=== PATIENT | female | born 1995 | race Caucasian/White ===

== ENCOUNTER 2024-08-10 15:56 | Inpatient (IN) ==
[2024-08-10 16:58] LABS: Basophils # (auto) 0.03 K/uL (0.00-0.20); Basophils % (auto) 0.3 %; Eosinophils # (auto) 0.06 K/uL (0.00-0.50); Eosinophils % (auto) 0.7 %; Hematocrit (blood only) 37.2 % (37.0-47.0); Immature Granulocytes # (auto) 0.05 K/uL (0.01-0.20); Immature Granulocytes % (auto) 0.5 %; Lymphocytes # (auto) 1.76 K/uL (1.20-3.40); Lymphocytes % (auto) 19.2 %; Mean Corpuscular Hemoglobin 28.2 pg (25.0-34.0); Mean Corpuscular Hgb Conc 32.3 g/dL (32.0-36.0); Mean Corpuscular Volume 87.5 fL (80.0-100.0); Mean Platelet Volume 10.7 fL (9.4-12.4); Monocytes # (auto) 0.57 K/uL (0.11-0.59); Monocytes % (auto) 6.2 %; Neutrophils # (auto) 6.71 K/uL (1.40-6.50); Neutrophils % (auto) 73.1 %; Platelet Count 340 K/uL (130-400); RDW Standard Deviation 43.9 fL (36.4-46.3); Red Blood Count 4.25 M/uL (4.20-5.40); White Blood Count 9.18 K/ul (4.8-10.8)
[2024-08-10 17:15] LABS: Albumin Globulin Ratio 1.1 (0.9-2); Albumin Level 3.4 gm/dl (3.4-5.0); BUN Creatinine Ratio 9.1 (10-20); Bilirubin,Total 0.3 mg/dl (0.2-1.0); Calcium 8.9 mg/dl (8.6-10.3); Creatinine Clr Calc Pharmacy 161.1 ml/min; Globulin 3.2 gm/dl (2.5-4.0); Total Protein 6.6 gm/dl (6.0-8.3)
[2024-08-10 17:32] LABS: Protein Creatinine Ratio Urine 0.2 (0-0.2)
[2024-08-10] MEDS: NIFEdipine 10 MG CAP PO STA ×2 (18:10→19:55)
[2024-08-10] MEDS ORDERED: LIDOCAINE 1% LOCAL 20 ML VIAL INFIL PRN (18:16)
[2024-08-10] MEDS ORDERED: OXYTOCIN 30 UNITS/NSS 30 UNITS/500 ML BAG IV PRN ×2 (18:16)
[2024-08-10] MEDS ORDERED: ACETAMINOPHEN 325 MG TAB PO PRN (18:16)
--- NOTE | 2024-08-10 18:42 | History & Physical Report ---
Date of Service August 10, 2024 Assessment & Plan (1) Gestational hypertension: Plan: Reviewed labs with patient - normal findings, 0.2 urine protein/creat ratio. Given blood pressures in severe range for 4+ hours, would recommend move towards delivery. She was in agreement. After ultrasound showing breech presentation, she is aware of recommendation for delivery by section due to breech presentation. Will start magnesium, give PO nifedipine 10mg immediate-release for BP. Reviewed consent in detail with patient - last ate 3pm, will plan for at approx 9pm per my discussion with anesthesiologist. History of Present Illness Chief Complaint: elevated BP, headache Primary Care Provider: Denae Ford 29yo @ 36 11/16, sent from office with elevated BPs. Had had headache over the past few days, has also had tunnel vision-like visual changes. Swollen legs. Obesity (BMI between 35-39 @ beginning of ) *Growth US @ 32 wks *Weekly NSTs @ 36wks Effexor for anxiety GBS + urine-treat in labor Allergies Allergy/AdvReac Type Severity Reaction Status Date / Time Sulfa (Sulfonamide Allergy Unknown Hives Verified 08/10/24 16:45 Antibiotics) Home Medications Medication Instructions Recorded Confirmed Type venlafaxine 75 mg tablet 75 mg PO HS 01/20/24 08/10/24 History Patient History Medical History (Updated 08/10/24 @ 18:47 by Jaqueline Mak DO) Anxiety on effexor daily History of chicken pox Migraine without aura IBS (irritable bowel syndrome) Intrinsic asthma HX OF WHILE GROWING UP - NO CURRENT PROBLEM WITH Surgical History History of reduction surgery of left breast History of endoscopy History of colonoscopy History of oral surgery History of wisdom tooth extraction History of tonsillectomy Family History Denies family history of Ovarian cancer Breast cancer Colorectal cancer Uterine cancer Social History (Updated 08/10/24 @ 16:45 by Moon Jasso, ROSANA) Smoking Status: Never smoker Do You Dip or Chew Tobacco: No; Hx Alcohol Use: No Hx Substance Use: No Preferred Language: Kyrgyz Communication Ability: Effective Adolescent Medicine Specialist Required: No Beliefs That Will Affect Care: None marital status: Single marital status details: Braulio Vazquez (31) [phone] Current Living Situation: Family and Significant Other Current Living Situation Comment: FOB, adopted daughter (11), 1 cat, 2 dogs- FOB changes litter current occupational status: employed current occupation: [employer] Feels Safe at Home: Yes Safety Concerns: Feels Safe At This Time Sunscreen Use: No Assistive Devices: Glasses Review of Systems All systems reviewed & are unremarkable except as noted in HPI & below Physical Exam Physical Exam: FHT Cat 1 [place] rare ctx Limited bedside ultrasound - breech presentation, anterior placenta Constitutional: WD/WN, vitals as above Respiratory: normal respiratory effort, lungs clear to auscultation no respiratory distress Cardiovascular: Rate/Rhythm: regular rate and regular rhythm Gastrointestinal (Abdomen): Inspection/Auscultation: abdomen normal to inspection Percussion/Palpation: abdomen soft; abdomen nontender Gravid. No s/s chorio or abruption. Skin: no rashes, warm and dry Psychiatric: A+Ox3, euthymic affect Results & Data Vital Signs (Past 12 Hours) Vital Signs Temp Pulse Resp BP 08/10/24 17:37 123 H 175/95 H 08/10/24 17:18 117 H 159/107 H 08/10/24 16:58 113 H 172/110 H 08/10/24 16:41 37.2 C 18 08/10/24 16:38 121 H 185/124 H 08/10/24 16:17 97 H 169/87 H Coding Level of Care Code None Diagnoses Gestational hypertension O13.9
[2024-08-10] MEDS: PENICILLIN GK 6 MU in DEXTROSE 5% 250 ML IV ONE (19:17)
[2024-08-10] MEDS: ACETAMINOPHEN 500 MG TAB PO ONE (20:18)
[2024-08-10] MEDS: LACTATED RINGER'S 1,000 ML IV SCH ×2 (20:27→22:49)
[2024-08-10] MEDS: MAG SULFATE 4GM BOLUS FROM BAG IV ONE (20:30)
[2024-08-10] MEDS: MAGNESIUM SULFATE / WTR 40 GM/1,000 ML BAG IV SCH (20:30)
[2024-08-10] MEDS: ceFAZolin 3000MG 3,000 MG/72.5 ML BAG IV STA (20:30)
[2024-08-10] MEDS: CITRIC ACID/SODIUM CITRATE 15 ML UDC PO STA (20:32)
--- NOTE | 2024-08-10 21:04 | Anesthesiology Consultation ---
Date of Service August 10, 2024 Assessment & Plan Chart Review Chart Review: Acceptable Risk for Surgery Consults Requested none History Surgery Operation Date: 08/10/24 21:00 Proposed Procedures p Section in LD - Jaqueline Mak DO Height/Weight Height: 5 ft 6 in Weight: 112.037 kg Allergies Allergy/AdvReac Type Severity Reaction Status Date / Time Sulfa (Sulfonamide Allergy Unknown Hives Verified 08/10/24 16:45 Antibiotics) Medications Home Medications Medication Instructions Recorded Confirmed Last Taken venlafaxine 75 mg tablet 75 mg PO HS 01/20/24 08/10/24 08/09/24 Active Medications Generic Name Dose Route Start Last Admin Trade Name Freq PRN Reason Stop Dose Admin Magnesium Sulfate 40 gm in 1,000 mls @ 50 mls/hr 08/10/24 18:30 08/10/24 20:30 Magnesium Sulfate / Wtr IV 09/09/24 18:29 50 mls/hr .Q20H IZABELA Administration Lactated Ringer's 1,000 mls @ 50 mls/hr 08/10/24 18:30 08/10/24 20:27 Lr IV 08/11/24 18:29 50 mls/hr .Q20H IZABELA Administration NPO Date Last Intake of Fluids: 08/10/24 Time Last Intake of Fluids: 15:00 Date Last Intake of Solids: 08/10/24 Time Last Intake of Solids: 15:00 Past Medical History Medical History (Updated 08/10/24 @ 18:47 by Jaqueline Mak DO) Anxiety on effexor daily History of chicken pox Migraine without aura IBS (irritable bowel syndrome) Intrinsic asthma HX OF WHILE GROWING UP - NO CURRENT PROBLEM WITH Past Family History Family History Denies family history of Ovarian cancer Breast cancer Colorectal cancer Uterine cancer Past Surgical History Surgical History History of reduction surgery of left breast History of endoscopy History of colonoscopy History of oral surgery History of wisdom tooth extraction History of tonsillectomy Social History Smoking Status: Never smoker Do You Dip or Chew Tobacco: No Hx Alcohol Use: No Hx Substance Use: No substance use type: does not use Physical Exam Vital Signs Last Vital Signs Temp 37.5 C 08/10/24 19:27 Pulse 126 H 08/10/24 20:17 Resp 16 08/10/24 19:27 BP 144/101 H 08/10/24 20:17 Testing Laboratory Results 08/10/24 16:40 08/10/24 16:40
[2024-08-10] MEDS ORDERED: MoRPHine SULFATE PF 1 MG/ML 10 ML AMP/VIAL ONE (21:08)
[2024-08-10] MEDS ORDERED: PENICILLIN GK 3 MU in DEXTROSE 5% 100 ML IV PRN (21:16)
[2024-08-10] MEDS ORDERED: NALOXONE HCL 1 MG in SODIUM CHLORIDE 0.9% 1,000 ML IV PRN (21:56)
[2024-08-10] MEDS ORDERED: MEPERIDINE HCL 25 MG/ML CARP/VIAL IV PRN (21:56)
[2024-08-10] MEDS ORDERED: ePHEDrine sulfate 50 MG/ML AMP IV PRN (21:56)
[2024-08-10] MEDS ORDERED: PROMETHAZINE 6.25 MG/50.25 ML BAG IV PRN (21:56)
[2024-08-10] MEDS ORDERED: oxyCODONE HCL IR 5 MG TAB (IMMEDIATE RELEASE) PO PRN (21:56)
[2024-08-10] MEDS ORDERED: ONDANSETRON INJ 2 MG/ML 2 ML VIAL IV PRN (21:56)
[2024-08-10] MEDS ORDERED: HYDROmorphone INJ 0.5 MG/0.5 ML SYR IV PRN (21:56)
[2024-08-10] MEDS ORDERED: NALOXONE HCL 0.08 MG in SYRINGE 1.8 ML IV PRN (21:56)
[2024-08-10] MEDS ORDERED: ACETAMINOPHEN 1,000 MG/100 ML VIAL IV PRN (21:56)
[2024-08-10] MEDS ORDERED: diphenhydrAMINE 50 MG/ML VIAL IV PRN (21:56)
[2024-08-10] MEDS ORDERED: NALBUPHINE HCL INJ 10 MG/ML AMP IV PRN (21:56)
[2024-08-10] MEDS ORDERED: MoRPHine SULFATE 2 MG/ML CARP IV PRN (21:56)
[2024-08-10] MEDS ORDERED: NALOXONE HCL 0.4 MG/1 ML VIAL/CARP IV PRN (21:56)
[2024-08-10] MEDS ORDERED: KETOROLAC 30 MG/ML VIAL IV PRN (21:56)
[2024-08-10] MEDS ORDERED: METOCLOPRAMIDE HCL 10 MG in SODIUM CHLORIDE 0.9% 50 ML IV PRN (21:56)
[2024-08-10] MEDS ORDERED: NO NARCOTICS OR SEDATIVES SCH (22:00)
[2024-08-10] MEDS ORDERED: DC INTRASPINAL MORPHINE SCH (22:00)
[2024-08-10] MEDS ORDERED: PHENYLEPHRINE 100MCG/ML 10ML SYR IV ONE (22:17)
[2024-08-10] MEDS ORDERED: PHENYLEPHRINE 100MCG/ML 5ML SYR ONE (22:18)
--- NOTE | 2024-08-10 22:28 | Operative Report ---
Post Operative Report Pre & Post Diagnosis Operation Date: 08/10/24 21:00 Pre-Op Diagnosis: 1. Gentational hypertension with severe features 2. Breech Presentation Post-Op Diagnosis: 1. same as preop I identified the patient and participated in the time-out.: Yes Procedure Operation Date: 08/10/24 21:00 Actual Procedures p Primary Low Transverse Section in - Jaqueline Mak DO Surgeon Jaqueline Mak DO Tire Building Supervisor Karen Curtis RN Quantitative Blood Loss (QBL) 699 Findings Consistent with Post-Op Diagnosis Viable female , Apgars 7/8. Weight pending, please see nursery records. Specimens placenta, cord blood, cord gas Drains powell clear yellow Anesthesia Type Spinal Complications none Disposition Accompanied Patient To Recovery: Yes Disposition: L&D Indications 29yo @ 36 2/7, gestational hypertension - severe, breech presentation, obesity, anxiety, GBS+ Description of Procedure The patient was seen in her labor and delivery room, risks benefits and alternatives to surgery were reviewed. Informed consent obtained. Questions were answered. She was taken to the operating room, spinal anesthesia was administered. She was then prepared and draped in the usual sterile fashion in the supine position with a leftward tilt. Timeout was confirmed. A Pfannenstiel skin incision was made with a scalpel, and carried through to the underlying layer of fascia. Fascia was nicked at midline, and this incision was extended bilaterally. The superior aspect of the fascial incision was grasped with Whitney clamps x2, elevated off the underlying rectus abdominis muscles, and dissected sharply and bluntly. In similar fashion, the inferior aspect of the fascial incision was dissected. The rectus abdominis muscles were , and the peritoneum was entered bluntly digitally. This was extended bilaterally. The bladder flap was taken down carefully using Metzenbaum scissors. Using a new scalpel, a low transverse uterine incision was created. Clear amniotic fluid noted. The was delivered from a breech presentation. The buttocks delivered, followed by legs and torso, then arms swept medially and head delivered. The cord was doubly clamped and cut, and the was handed off to the waiting shared services representative. A segment was retained for cord gases. Cord blood was obtained. The placenta was delivered spontaneously intact. The uterus was exteriorized, and cleared of all clots and debris. The hysterotomy incision was reapproximated using 0 Vicryl in a running locked stitch. A second layer of the same suture was used to imbricate the incision. Posterior uterus was evaluated and normal. The uterus was returned to the abdomen, and gutters were cleared of clots and debris. Excellent hemostasis was observed. The fascial incision was reapproximated using 0 Vicryl in a running stitch. The subcutaneous tissue was irrigated, and reapproximated using 2-0 plain gut in a running stitch. The skin was reapproximated using 4-0 Vicryl in a running subcuticular stitch. Steri-Strips and a bandage were applied. The patient tolerated the procedure well, and will be taken to the recovery area in stable and good condition. I attest to the content of the Intraoperative Record and any orders documented therein. Any exceptions are noted below. OB Procedure Charges 13516
[2024-08-10] MEDS ORDERED: BENZOCAINE 20% SPRY 85 APPLN/85 GM CAN EXT PRN (22:36)
[2024-08-10] MEDS ORDERED: CALCIUM CARBONATE 500 MG CHEWABLE TAB PO PRN (22:36)
[2024-08-10] MEDS ORDERED: MAGNESIUM HYDROXIDE SUSP 30 ML UDC PO PRN (22:36)
[2024-08-10] MEDS ORDERED: HYDROCORTISONE ACETATE 25 MG SUPP PR PRN (22:36)
[2024-08-10 22:37] LABS: Base Excess Cord Arterial Bld -1.6 mEq/L (-9-1.8); Base Excess Cord Venous Blood -2.4 mEq/L (-7.7-1.9); CO2 Cord Arterial Blood 52 mmHg (39.1-73.5); Cord Venous Blood HCO3 23 mmol/L (18.4-26.8); Cord Venous Blood PCO2 42 mmHg (30.4-57.2); Cord Venous Blood PO2 25 mmHg (14.1-43.3); Cord Venous Blood pH 7.35 (7.20-7.44); HCO3 Cord Arterial Blood 26 mmol/L (19.7-28.5); O2 Saturation Cord Venous Bld < 60.0 % (<68); Oxygen Sat Cord Arterial Blood < 60.0 % (<60); PO2 Cord Arterial Blood < 20 mmHg (4.1-31.7)
[2024-08-10] MEDS: OXYTOCIN 30 UNITS/LR 1,003 ML IV SCH (22:47)
[2024-08-10] MEDS: VENLAFAXINE HCL 37.5 MG TAB PO SCH (22:49)
--- NOTE | 2024-08-10 22:57 | Communication Note ---
Date of Service: August 10, 2024 Routine WASTE of unused narcotic at [facility] failed. Morphine(PF) 9.8mg returned personally to pharmacy where it was wasted by pharmacist.
[2024-08-11 00:51] LABS: Hematocrit (blood only) 35.3 % (37.0-47.0); Hemoglobin 11.5 g/dl (12.0-16.0); Mean Corpuscular Hemoglobin 28.5 pg (25.0-34.0); Mean Corpuscular Hgb Conc 32.6 g/dL (32.0-36.0); Mean Corpuscular Volume 87.4 fL (80.0-100.0); Mean Platelet Volume 10.9 fL (9.4-12.4); Platelet Count 335 K/uL (130-400); RDW Coefficient of Variation 14.1 % (11.5-14.5); RDW Standard Deviation 44.5 fL (36.4-46.3); Red Blood Count 4.04 M/uL (4.20-5.40); White Blood Count 17.21 K/ul (4.8-10.8)
[2024-08-11 01:04] LABS: Albumin Level 3.1 gm/dl (3.4-5.0); BUN Creatinine Ratio 8.8 (10-20); Bilirubin,Total 0.2 mg/dl (0.2-1.0); Calcium 8.2 mg/dl (8.6-10.3); Creatinine Clr Calc Pharmacy 186.5 ml/min; Potassium 3.7 mmol/L (3.5-5.1); Total Protein 6.1 gm/dl (6.0-8.3)
[2024-08-11] MEDS: KETOROLAC 30 MG/ML VIAL IV SCH (01:21)
[2024-08-11] MEDS: DIPHTHER/TETAN/PERTUS Vaccine (Tdap, Adol/Adult) 0.5mL IM ONE (01:26)
[2024-08-11] MEDS: ACETAMINOPHEN 325 MG TAB PO SCH (02:33)
[2024-08-11] MEDS ORDERED: CITRIC ACID/SODIUM CITRATE 15 ML UDC PO SCH (06:00)
[2024-08-11] MEDS ORDERED: ceFAZolin 3000MG 3,000 MG/72.5 ML BAG IV SCH (06:00)
--- NOTE | 2024-08-11 06:03 | Anesthesiology Progress Note ---
Date of Service August 11, 2024 Anesthesia Post Procedure Vital Signs Vital Signs: Temp Pulse Resp BP Pulse Ox O2 Del Method 08/11/24 05:56 95 H 98 08/11/24 05:51 96 H 97 08/11/24 05:46 99 H 97 08/11/24 05:41 94 H 97 08/11/24 05:36 94 H 97 08/11/24 05:31 92 H 97 08/11/24 05:26 103 H 98 08/11/24 05:21 89 97 08/11/24 05:16 88 97 08/11/24 05:11 97 H 97 08/11/24 05:06 105 H 96 08/11/24 05:01 99 H 97 08/11/24 04:56 99 H 97 08/11/24 04:51 107 H 97 08/11/24 04:46 99 H 97 08/11/24 04:41 100 H 96 08/11/24 04:36 96 H 141/84 H 99 08/11/24 04:31 97 H 97 08/11/24 04:30 18 08/11/24 04:30 36.5 C 14 08/11/24 04:26 104 H 99 08/11/24 04:21 98 H 97 08/11/24 04:16 99 H 98 08/11/24 04:11 107 H 98 08/11/24 04:06 99 H 98 08/11/24 04:01 101 H 98 08/11/24 03:56 99 H 98 08/11/24 03:51 95 H 97 08/11/24 03:46 101 H 97 08/11/24 03:41 103 H 98 08/11/24 03:36 94 H 97 08/11/24 03:31 102 H 97 08/11/24 03:30 16 08/11/24 03:26 96 H 96 08/11/24 03:21 100 H 97 08/11/24 03:16 96 H 97 08/11/24 03:11 97 H 97 08/11/24 03:06 97 H 97 08/11/24 03:01 96 H 98 08/11/24 02:56 96 H 97 08/11/24 02:51 99 H 97 08/11/24 02:46 97 H 97 08/11/24 02:41 94 H 97 08/11/24 02:36 98 08/11/24 02:36 109 H 08/11/24 02:36 99 H 145/83 H 08/11/24 02:31 101 H 97 08/11/24 02:30 36.5 C 18 99 Room Air 08/11/24 02:26 97 H 96 08/11/24 02:21 101 H 96 08/11/24 02:16 100 H 97 08/11/24 02:11 100 H 97 08/11/24 02:06 96 H 97 08/11/24 02:01 101 H 97 08/11/24 01:56 97 H 98 08/11/24 01:51 108 H 98 08/11/24 01:46 96 H 98 08/11/24 01:41 113 H 97 08/11/24 01:36 108 H 98 08/11/24 01:31 112 H 97 08/11/24 01:26 104 H 98 08/11/24 01:21 102 H 98 08/11/24 01:16 105 H 98 08/11/24 01:11 99 H 99 08/11/24 01:06 103 H 98 08/11/24 01:01 105 H 98 08/11/24 00:56 107 H 98 08/11/24 00:51 109 H 98 08/11/24 00:46 103 H 98 08/11/24 00:41 108 H 98 08/11/24 00:36 101 H 100 08/11/24 00:31 107 H 159/98 H 100 08/11/24 00:30 36.8 C 16 99 Room Air 08/11/24 00:26 102 H 100 08/11/24 00:21 106 H 100 08/11/24 00:16 107 H 100 08/11/24 00:11 106 H 126/77 100 08/11/24 00:06 101 H 100 08/11/24 00:01 104 H 100 08/11/24 00:00 16 98 Room Air 08/10/24 23:56 106 H 100 08/10/24 23:51 96 H 137/96 100 08/10/24 23:46 106 H 100 08/10/24 23:41 103 H 100 08/10/24 23:36 102 H 100 08/10/24 23:32 100 H 168/81 H 08/10/24 23:31 106 H 100 08/10/24 23:30 16 08/10/24 23:26 102 H 100 08/10/24 23:21 95 H 100 08/10/24 23:20 16 08/10/24 23:20 36.7 C 16 08/10/24 23:16 94 H 100 08/10/24 23:11 101 H 148/86 H 100 08/10/24 23:10 16 100 Room Air 08/10/24 23:06 102 H 99 08/10/24 23:01 102 H 99 08/10/24 23:00 14 99 Room Air 08/10/24 22:56 105 H 100 08/10/24 22:51 102 H 100 08/10/24 22:50 16 99 Room Air 08/10/24 22:46 101 H 100 08/10/24 22:41 98 H 100 08/10/24 22:40 16 100 Room Air 08/10/24 22:36 106 H 100 08/10/24 22:31 110 H 99 08/10/24 22:30 36.7 C 16 100 Room Air 08/10/24 22:26 100 08/10/24 22:26 110 H 08/10/24 22:26 106 H 145/79 H 08/10/24 21:03 142 H 193/107 H 08/10/24 20:17 126 H 144/101 H 08/10/24 19:27 37.5 C 16 08/10/24 19:24 108 H 170/100 H 08/10/24 17:37 123 H 175/95 H 08/10/24 17:18 117 H 159/107 H 08/10/24 16:58 113 H 172/110 H 08/10/24 16:41 37.2 C 18 08/10/24 16:38 121 H 185/124 H 08/10/24 16:17 97 H 169/87 H Transfer of Care Handoff Completed per policy Notes Mental Status: alert / awake / arousable and participated in evaluation Nausea / Vomiting: adequately controlled Pain: adequately controlled Airway Patency, RR, SpO2: stable & adequate BP & HR: stable & adequate Hydration State: stable & adequate Neuraxial Anesthesia: was administered and sensory block is resolving Anesthetic Complications: no major complications apparent and Pt Satisfied with anesthetic care
[2024-08-11 06:27] LABS: Hemoglobin 9.7 g/dl (12.0-16.0); Mean Corpuscular Hgb Conc 32.3 g/dL (32.0-36.0); Mean Corpuscular Volume 86.7 fL (80.0-100.0); Mean Platelet Volume 10.5 fL (9.4-12.4); Platelet Count 254 K/uL (130-400); RDW Coefficient of Variation 14.2 % (11.5-14.5); RDW Standard Deviation 43.4 fL (36.4-46.3); Red Blood Count 3.46 M/uL (4.20-5.40); White Blood Count 12.49 K/ul (4.8-10.8)
[2024-08-11 06:52] LABS: Albumin Globulin Ratio 1.1 (0.9-2); Albumin Level 2.7 gm/dl (3.4-5.0); BUN Creatinine Ratio 10.2 (10-20); Bilirubin,Total 0.3 mg/dl (0.2-1.0); Calcium 7.3 mg/dl (8.6-10.3); Creatinine Clr Calc Pharmacy 216.9 ml/min; Globulin 2.4 gm/dl (2.5-4.0); Magnesium Therapeutic L&D Only 4.7 mg/dL (4.0-8.0); Potassium 3.7 mmol/L (3.5-5.1); Total Protein 5.1 gm/dl (6.0-8.3)
--- NOTE | 2024-08-11 07:52 | Obstetrical Progress Note ---
Date of Service August 11, 2024 Assessment & Plan (1) Gestational hypertension: POD#1 doing well. Magnesium continues. Labs normal, reviewed with patient. Incision CDI. Abdomen soft. Swelling in legs has improved - now 1+ edema, ECDs in place. BPs have improved since delivery, has not required any additional meds to control BP since delivery. Plan: continue mag 24h, once mag is off can remove powell, ambulate, increase diet. Subjective Ambulation: ambulating normally Voiding: no voiding problems and powell catheter in place Diet Tolerance:: regular diet Lochia:: Moderate Review of Systems All systems reviewed & are unremarkable except as noted in HPI & below Physical Exam Constitutional WD/WN, vitals as above no acute distress Respiratory normal respiratory effort Cardiovascular Rate/Rhythm: regular rate and regular rhythm Gastrointestinal (Abdomen) Inspection/Auscultation: abdomen normal to inspection; abdomen not distended Percussion/Palpation: abdomen soft Genitourinary OB Exam Abdomen: + fundal height Fundus: + firm; not tender Results & Data Vital Signs (Past 12 Hours) Vital Signs Temp Pulse Resp BP Pulse Ox O2 Del Method 08/11/24 07:46 100 H 98 08/11/24 07:41 105 H 98 08/11/24 07:36 104 H 97 08/11/24 07:31 102 H 97 08/11/24 07:26 107 H 97 08/11/24 07:21 99 H 97 08/11/24 07:16 97 H 97 08/11/24 07:11 110 H 97 08/11/24 07:06 102 H 97 08/11/24 07:01 102 H 98 08/11/24 06:56 101 H 98 08/11/24 06:51 105 H 97 08/11/24 06:46 103 H 98 08/11/24 06:41 104 H 99 08/11/24 06:36 102 H 99 08/11/24 06:32 90 131/78 08/11/24 06:31 92 H 98 08/11/24 06:26 96 H 98 08/11/24 06:21 95 H 98 08/11/24 06:16 95 H 98 08/11/24 06:11 102 H 97 08/11/24 06:06 95 H 98 08/11/24 06:01 91 H 97 08/11/24 05:56 95 H 98 08/11/24 05:51 96 H 97 08/11/24 05:46 99 H 97 08/11/24 05:41 94 H 97 08/11/24 05:36 94 H 97 08/11/24 05:31 92 H 97 08/11/24 05:30 16 08/11/24 05:26 103 H 98 08/11/24 05:21 89 97 08/11/24 05:16 88 97 08/11/24 05:11 97 H 97 08/11/24 05:06 105 H 96 08/11/24 05:01 99 H 97 08/11/24 04:56 99 H 97 08/11/24 04:51 107 H 97 08/11/24 04:46 99 H 97 08/11/24 04:41 100 H 96 08/11/24 04:36 96 H 141/84 H 99 08/11/24 04:31 97 H 97 08/11/24 04:30 18 08/11/24 04:30 36.5 C 14 08/11/24 04:26 104 H 99 08/11/24 04:21 98 H 97 08/11/24 04:16 99 H 98 08/11/24 04:11 107 H 98 08/11/24 04:06 99 H 98 08/11/24 04:01 101 H 98 08/11/24 03:56 99 H 98 08/11/24 03:51 95 H 97 08/11/24 03:46 101 H 97 08/11/24 03:41 103 H 98 08/11/24 03:36 94 H 97 08/11/24 03:31 102 H 97 08/11/24 03:30 16 08/11/24 03:26 96 H 96 08/11/24 03:21 100 H 97 08/11/24 03:16 96 H 97 08/11/24 03:11 97 H 97 08/11/24 03:06 97 H 97 08/11/24 03:01 96 H 98 08/11/24 02:56 96 H 97 08/11/24 02:51 99 H 97 08/11/24 02:46 97 H 97 08/11/24 02:41 94 H 97 08/11/24 02:36 98 08/11/24 02:36 109 H 08/11/24 02:36 99 H 145/83 H 08/11/24 02:31 101 H 97 08/11/24 02:30 36.5 C 18 99 Room Air 08/11/24 02:26 97 H 96 08/11/24 02:21 101 H 96 08/11/24 02:16 100 H 97 08/11/24 02:11 100 H 97 08/11/24 02:06 96 H 97 08/11/24 02:01 101 H 97 08/11/24 01:56 97 H 98 08/11/24 01:51 108 H 98 08/11/24 01:46 96 H 98 08/11/24 01:41 113 H 97 08/11/24 01:36 108 H 98 08/11/24 01:31 112 H 97 08/11/24 01:26 104 H 98 08/11/24 01:21 102 H 98 08/11/24 01:16 105 H 98 08/11/24 01:11 99 H 99 08/11/24 01:06 103 H 98 08/11/24 01:01 105 H 98 08/11/24 00:56 107 H 98 08/11/24 00:51 109 H 98 08/11/24 00:46 103 H 98 08/11/24 00:41 108 H 98 08/11/24 00:36 101 H 100 08/11/24 00:31 107 H 159/98 H 100 08/11/24 00:30 36.8 C 16 99 Room Air 08/11/24 00:26 102 H 100 08/11/24 00:21 106 H 100 08/11/24 00:16 107 H 100 08/11/24 00:11 106 H 126/77 100 08/11/24 00:06 101 H 100 08/11/24 00:01 104 H 100 08/11/24 00:00 16 98 Room Air 08/10/24 23:56 106 H 100 08/10/24 23:51 96 H 137/96 100 08/10/24 23:46 106 H 100 08/10/24 23:41 103 H 100 08/10/24 23:36 102 H 100 08/10/24 23:32 100 H 168/81 H 08/10/24 23:31 106 H 100 08/10/24 23:30 16 08/10/24 23:26 102 H 100 08/10/24 23:21 95 H 100 08/10/24 23:20 16 08/10/24 23:20 36.7 C 16 08/10/24 23:16 94 H 100 08/10/24 23:11 101 H 148/86 H 100 08/10/24 23:10 16 100 Room Air 08/10/24 23:06 102 H 99 08/10/24 23:01 102 H 99 08/10/24 23:00 14 99 Room Air 08/10/24 22:56 105 H 100 08/10/24 22:51 102 H 100 08/10/24 22:50 16 99 Room Air 08/10/24 22:46 101 H 100 08/10/24 22:41 98 H 100 08/10/24 22:40 16 100 Room Air 08/10/24 22:36 106 H 100 08/10/24 22:31 110 H 99 08/10/24 22:30 36.7 C 16 100 Room Air 08/10/24 22:26 100 08/10/24 22:26 110 H 08/10/24 22:26 106 H 145/79 H 08/10/24 21:03 142 H 193/107 H 08/10/24 20:17 126 H 144/101 H
[2024-08-11] MEDS: PRENATAL VITAMIN 1 TAB PO SCH (08:26)
[2024-08-11] MEDS: FERROUS SULFATE 325 MG TAB PO SCH (08:26)
[2024-08-11] MEDS: DOCUSATE SODIUM 100 MG CAP PO SCH (08:26)
[2024-08-11] MEDS: SIMETHICONE 80 MG CHEW PO SCH (08:27)
[2024-08-11] MEDS ORDERED: LORazepam 1 MG TAB PO STA (09:29)
[2024-08-11] MEDS: LORazepam 1 MG TAB PO STA (09:50)
[2024-08-11] MEDS ORDERED: diphenhydrAMINE Capsule 25 MG CAP PO PRN (15:56)
[2024-08-11] MEDS ORDERED: HYDROmorphone INJ 0.5 MG/0.5 ML SYR IV PRN (15:56)
[2024-08-11] MEDS ORDERED: diphenhydrAMINE 50 MG/ML VIAL IV PRN (15:56)
[2024-08-11] MEDS ORDERED: oxyCODONE HCL IR 5 MG TAB (IMMEDIATE RELEASE) PO PRN (15:56)
[2024-08-11] MEDS ORDERED: ONDANSETRON INJ 2 MG/ML 2 ML VIAL IV PRN (15:56)
[2024-08-11] MEDS ORDERED: PROMETHAZINE 12.5 MG/50.5 ML BAG IV PRN (15:56)
[2024-08-11] MEDS ORDERED: KETOROLAC 30 MG/ML VIAL IV PRN (19:34)
[2024-08-11] MEDS: bisacodyL 5 MG TABEC PO SCH (20:29)
[2024-08-11] MEDS: SENNA 8.6 MG TAB PO PRN (20:29)
[2024-08-11 21:48] VITALS: RESP 18
[2024-08-11] MEDS: MoRPHine SULFATE PF 1 MG/ML 10 ML AMP/VIAL INT SPINAL ONE (23:42)
[2024-08-11] MEDS ORDERED: Nursing to Pharmacy Communication SCH (23:45)
[2024-08-12] MEDS ORDERED: bisacodyL 10 MG SUPP PR PRN
[2024-08-12] MEDS: IBUPROFEN 600 MG TAB PO SCH (05:12)
[2024-08-12 06:58] LABS: Hematocrit (blood only) 31.4 % (37.0-47.0); Hemoglobin 10.1 g/dl (12.0-16.0); Mean Corpuscular Hemoglobin 28.4 pg (25.0-34.0); Mean Corpuscular Hgb Conc 32.2 g/dL (32.0-36.0); Mean Corpuscular Volume 88.2 fL (80.0-100.0); Mean Platelet Volume 10.6 fL (9.4-12.4); Platelet Count 300 K/uL (130-400); RDW Coefficient of Variation 14.3 % (11.5-14.5); RDW Standard Deviation 45.8 fL (36.4-46.3); Red Blood Count 3.56 M/uL (4.20-5.40); White Blood Count 9.93 K/ul (4.8-10.8)
[2024-08-12 07:05] VITALS: PULSE 94; TEMP 98.1; O2SAT 98
[2024-08-12 07:19] LABS: Albumin Globulin Ratio 1.1 (0.9-2); Albumin Level 3.1 gm/dl (3.4-5.0); BUN Creatinine Ratio 11.5 (10-20); Bilirubin,Total 0.2 mg/dl (0.2-1.0); Calcium 8.2 mg/dl (8.6-10.3); Creatinine Clr Calc Pharmacy 174.3 ml/min; Globulin 2.9 gm/dl (2.5-4.0); Potassium 4.7 mmol/L (3.5-5.1)
--- NOTE | 2024-08-12 10:01 | Obstetrical Progress Note ---
Date of Service August 12, 2024 Assessment & Plan (1) Gestational hypertension: Trimester: third trimester Qualified Code(s): O13.3 - Gestational [-induced] hypertension without significant proteinuria, third trimester (2) Encounter for care and examination after delivery: Subjective Ambulation: ambulating normally Voiding: no voiding problems Passing Gas:: Yes Diet Tolerance:: regular diet Lochia:: Moderate Feeding Type:: breast feeding Completed 24 hours of magnesium. Reports that she is feeling very well today denying any concerns. Denying any preeclampsia symptoms. Has been normotensive since yesterday morning and largely normotensive since shortly after delivery. Preeclampsia labs have been normal. Patient is requesting discharge today and we discussed discharge precautions. Discussed blood pressur e check in clinic early this next week. Discussed risks of preeclampsia recurring discussed that this is a bit of a higher risk due to her earlier age of onset of the gestational hypertension. Discussed that her blood pressures labs and overall findings are very reassuring at present. Physical Exam Constitutional WD/WN, vitals as above Respiratory normal respiratory effort; no respiratory distress and no labored breathing Cardiovascular Extremities: no calf tenderness Gastrointestinal (Abdomen) Inspection/Auscultation: abdomen normal to inspection; abdomen not distended Percussion/Palpation: abdomen soft; abdomen nontender, no guarding and abdomen not rigid Incision healing appropriately Genitourinary OB Exam Abdomen: + fundal height Fundus: + firm and + relation to umbilicus (Below); not tender or not boggy Results & Data Vital Signs (Past 12 Hours) Vital Signs Temp Pulse Resp BP Pulse Ox O2 Del Method 08/12/24 07:04 36.7 C 94 H 18 122/91 98 Room Air 08/12/24 02:13 37.1 C 89 18 131/83 99 Room Air
[2024-08-12 12:34] VITALS: BP 137/91
[2024-08-12] MEDS ORDERED: IBUPROFEN 600 MG TAB PO PRN (22:24)
[2024-08-13] MEDS ORDERED: ACETAMINOPHEN 325 MG TAB PO PRN (04:24)
--- NOTE | 2024-08-13 15:30 | Discharge Summary ---
Date of Service August 13, 2024 Admission HPI Per Admitting Provider 29yo @ 36 11/16, sent from office with elevated BPs. Had had headache over the past few days, has also had tunnel vision-like visual changes. Swollen legs. Obesity (BMI between 35-39 @ beginning of ) *Growth US @ 32 wks *Weekly NSTs @ 36wks Effexor for anxiety GBS + urine-treat in labor Admission Exam (Per Admitting) Constitutional WD/WN, vitals as above no acute distress Respiratory normal respiratory effort, lungs clear to auscultation normal respiratory effort; no respiratory distress Cardiovascular Rate/Rhythm: regular rate and regular rhythm Gastrointestinal (Abdomen) Inspection/Auscultation: abdomen normal to inspection; abdomen not distended Percussion/Palpation: abdomen soft; abdomen nontender Skin no rashes, warm and dry Psychiatric A+Ox3, euthymic affect Genitourinary OB Exam Abdomen: + fundal height Discharge Data Procedures Performed Operation Date: 08/10/24 21:00 Actual Procedures p Section in - Jaqueline Mak DO Hospital Course (1) Gestational hypertension: POD#1 doing well. Magnesium continues. Labs normal, reviewed with patient. Incision CDI. Abdomen soft. Swelling in legs has improved - now 1+ edema, ECDs in place. BPs have improved since delivery, has not required any additional meds to control BP since delivery. Plan: continue mag 24h, once mag is off can remove powell, ambulate, increase diet. (2) Encounter for care and examination after delivery: Coding Level of Care Code None Diagnoses Gestational hypertension, third trimester O13.3 Trimester: third trimester Encounter for care and examination after delivery Z39.2
== END 2024-08-12 16:32 | disposition home or self-care (01) | DRG 788 ==
LOC: OPB 15:56 → 4S1 15:58 → 4E2 08-11 22:10